=== PATIENT | female | born 2005 | race Caucasian/White ===

== ENCOUNTER 2025-03-17 15:32 | Emergency (ER) | payer BC, SELFPAY ==
[2025-03-17 15:39] VITALS: BP 100/68
--- NOTE | 2025-03-17 17:34 | ED.GENMED ---
History of Present Illness
General
Chief Complaint: Chest Problem
Source: patient and family (Mom at bedside)
Exam Limitations: none
Time Seen by Provider: 03/17/25 17:01
Nursing documentation reviewed up to this point in time: agreed with
History of Present Illness
History of Present Illness:
Patient is a 19-year-old female presenting to the emergency department with mom and dad for evaluation of chest pain. Patient states she has had 2 days of constant pressure in her mid chest. Symptoms seem worse with movement and when lying on her
side. She feels better when she is lying down. Patient denies any associated fever, cough, shortness of breath, dizziness, lightheadedness. No back pain. She denies any true pleuritic or exertional symptoms.
Patient was seen at urgent care earlier today where she had a normal chest x-ray and was referred to the emergency department for further evaluation given chest pain and elevated heart rate.
No recent travel or recent surgeries. No lower leg pain or swelling.
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
No personal or family history of blood clots or clotting disorders.
Review of Systems
Review of Systems
Allergies reviewed?: Yes
All Other Systems: ROS reviewed and negative except as documented in HPI and ROS
Phy Exam
Physical Exam
Physical Exam:
Vitals: Mildly tachycardic, otherwise vital signs stable. Afebrile
General: Patient is well appearing, no acute distress
Skin: Warm and dry, no rashes or lesions
Head: Normocephalic, atraumatic
Eyes: Sclera nonicteric. EOMs intact. No nystagmus.
Throat: Protecting airway
Neck: Normal ROM, no cervical spine tenderness, no meningismus
Cardiac: Tachycardic, normal rhythm, no murmurs. Reproducible chest tenderness to mid chest.
Pulm: Normal respiratory effort, no wheezes, rales, rhonchi heard on exam.
Abdomen: Abdomen soft and nontender
Extremities: No evidence of cyanosis or edema. Palpable DP pulses bilaterally
Neuro: AAOx3. Grossly intact.
Psychiatric: Normal affect.
Course
Orders/Labs/Results
Orders:
Orders
03/17/25 15:33
EKG [Electrocardiogram (*1)] Urgent
Reason for Study: Palpitations
03/17/25 15:34
EKG- Treatment ONCE
03/17/25 17:14
Ketorolac [Toradol] 15 mg IV NOW STA
Test Result ONCE
03/17/25 17:36
Complete Blood Count/With Diff Urgent
Comprehensive Metabolic Panel Urgent
D-Dimer Urgent
HCG, Serum Qualitative Screen Urgent
Troponin I Urgent
Abnormal Lab Results
03/17/25
17:36
WBC 12.0 H 10^3/uL
(4.8-10.8)
MCH 31.9 H pg
(27.0-31.0)
MPV 11.8 H fL
(7.4-10.4)
Absolute Neuts (auto) 9.5 H 10^3/uL
(1.4-6.5)
Absolute Monos (auto) 0.9 H 10^3/uL
(0.1-0.6)
Neutrophils % 79.6 H %
(42.2-75.2)
Lymphocytes % 11.4 L %
(20.5-51.1)
03/17/25 17:36
03/17/25 17:36
Vital Signs
Initial and Last Documented VS:
Initial Vital Signs
Temp Pulse Resp BP Pulse Ox
99.1 F 104 20 100/68 98
03/17/25 15:39 03/17/25 15:39 03/17/25 15:39 03/17/25 15:39 03/17/25 15:39
Last Documented Vital Signs
Temp Pulse Resp BP Pulse Ox
99.1 F 87 17 99/70 96
03/17/25 15:39 03/17/25 19:15 03/17/25 19:15 03/17/25 19:01 03/17/25 19:15
MDM/Problems Addressed
Differential Diagnosis Includes:
Not limited to: Costochondritis, chest wall strain, pleurisy, pericarditis, myocarditis, pulmonary embolism, etc.
MDM/Problems Addressed:
19-year-old female with two days of mid sternal chest pain. No associated shortness of breath, fever, cough, lightheadedness. No known inciting injury. Patient had x-ray performed at urgent care prior to ED visit which was normal per radiology read.
Patient mildly tachycardic on arrival, otherwise stable vital signs. Physical exam as above. Patient well appearing, in no apparent distress. Mildly tachycardic on arrival with normal rhythm. Lungs are clear bilaterally. She does have some
reproducible tenderness to chest wall. No evidence of DVT on exam. While patient has no risk factors for PE she is mildly tachy on arrival. Did review CXR results from the urgent care which should no acute process by radiology read. Will check basic
labs, troponin, and D-dimer. Will give Toradol and reassess.
Update: EKG shows normal sinus rhythm without acute ischemic changes. Mild leukocytosis noted. Troponin undetectable and given symptoms have been constant for the past few days � feel this is sufficient to rule out acute WI. Fortunately � d-dimer
was negative. Patient has seen significant improvement following Toradol. Vital signs have normalized. Ultimately � suspect musculoskeletal etiology. Do not suspect acute cardiac/pulmonary emergent process. Feel patient stable for discharge home
with primary care f/u. Very close precautions discussed. Patient and patient�s family comfortable with plan.
Chronic conditions affecting care:
N/A
Acute Exacerbation and/or Progression of Chronic Illness:
N/A
*Pulse Oximetry
Patient hypoxic: no
*EKG
Interpreted by ED Provider?: Yes
EKG Intrepretation Date: 03/17/25
Interpretation: normal
Comparison EKG: no changes
Heart Rate: 91
Rate: normal
Rhythm: sinus
[place]: normal axis
Interval: normal QT interval
QRS Pattern: normal QRS
Ischemia: no ischemia
*Player Development Manager Interpretation
Rate: tachycardiac
Interpretation: abnormal
Heart Rate: 106
Rhythm: sinus
*Critical Care Note
Total Time (30-74mins, 75-104mins- exclusive of procedures): Not Applicable
Data Reviewed
Review of Other/Old Records Reveals: Radiology Studies (Chest x-ray performed at urgent care-no acute cardio/pulmonary process)
ED Attending Note
-
Portions of this chart may have been created with voice recognition software.� Occasional wrong word or��sound alike� substitutions may have occurred due to the inherent limitations of voice recognition software.
Discharge Plan
Departure
Patient Disposition: Home (Routine Discharge)
Date of Disposition: 03/17/25
Time of Disposition: 18:55
Patient with high blood pressure during this ER visit?: No
Condition: Good
Covid-19: Not Applicable
Discharge Problem:
Chest pain
Instructions: Chest Pain (DC)
Referrals:
Nohemi Roblero NP [Family Provider] - Follow up in 5-7 days
Stand Alone Forms: Back to School
Activity Restrictions/Additional Instructions:
RETURN TO THE EMERGENCY DEPARTMENT WITH ANY WORSENING CHEST PAIN, SHORTNESS OF BREATH, DIZZINESS/LIGHTHEADEDNESS, EPISODES OF FAINTING, WORSENING IN CURRENT SYMPTOMS, OR ANY OTHER CONCERNS
- We are unsure the exact cause of your chest pain today. Your lab work in the emergency department showed no acute abnormalities other than a mild elevation in your white blood cell count. You were given IV Toradol while in the emergency
department.
- Your chest x-ray performed at urgent care showed no abnormalities according to the radiology report.
- Continue to take Tylenol and/Motrin as needed for pain. Stay well-hydrated. Get plenty of rest.
- Follow-up with primary care for further evaluation/management to ensure that symptoms are improved
Monitor your symptoms closely and return to the emergency department with any acute worsening/new symptoms or any other concern
Interventions
Interventions:
*Risk Screen - Suicide Last Done: 03/17/25 15:39
*Neglect/Abuse Screening Last Done: 03/17/25 15:39
*ED- Fall Risk Assessment Last Done: 03/17/25 17:50
*ED COVID-19 Vaccine History Last Done: 03/17/25 17:50
*Nursing Disposition Last Done: 03/17/25 19:28
ED- Cardiac Assessment Last Done: 03/17/25 17:06
ED- Pulmonary Assessment Last Done: 03/17/25 17:06
Discharge Date and Time
Discharge Date/Time: 03/17/25 19:29
Print Language: PERSIAN
[2025-03-17] MEDS: TORADOL 15 MG IV (17:39)
[2025-03-17 17:43] VITALS: BP 122/86
[2025-03-17 17:43] LABS: % Basophils 0.5 % (0-2); % Eosinophils 0.3 % (0-6); % Immature Granulocytes 0.3 % (0-0.5); % Lymphocytes 11.4 % (20.5-51.1); % Monocytes 7.9 % (1.7-9.3); % Neutrophils 79.6 % (42.2-75.2); Absolute Basophils 0.1 10^3/uL (0-0.2); Absolute Lymphocytes 1.4 10^3/uL (1.2-3.4); Absolute Monocytes 0.9 10^3/uL (0.1-0.6); Absolute Neutrophils 9.5 10^3/uL (1.4-6.5); Hematocrit 39.2 % (37.0-47.0); Hemoglobin 13.5 g/dL (12.0-16.0); Mean Corp Hgb Conc. 34.4 g/dL (33.0-37.0); Mean Corpuscular Hgb 31.9 pg (27.0-31.0); Mean Corpuscular Volume 92.7 fL (81.0-99.0); Mean Platelet Volume 11.8 fL (7.4-10.4); Nucleated Red Blood Cells % 0 %; Platelet Count 182 10^3/uL (130-400); Red Blood Cell Count 4.23 10^6/uL (4.20-5.40); Red Cell Dist. Width 12.9 % (11.5-14.5)
[2025-03-17 17:54] LABS: HCG, Serum Qualitative Screen Negative
[2025-03-17 17:58] LABS: ALT (SGPT) 13 U/L (0-35); AST (SGOT) 20 U/L (14-36); Albumin 4.9 g/dl (3.5-5.0); Alkaline Phosphatase 65 U/L (38-126); Blood Urea Nitrogen 13 mg/dl (7-17); Calcium 9.1 mg/dl (8.4-10.2); Carbon Dioxide 24 mmol/L (22-30); Chloride 106 mmol/L (98-107); Glucose 86 mg/dl (70-99); Potassium 4.2 mmol/L (3.5-5.1); Sodium 140 mmol/L (135-145); Total Bilirubin 0.8 mg/dl (0.2-1.3); Total Protein 7.7 g/dl (6.3-8.2); eGFR > 60.00
[2025-03-17 18:00] VITALS: BP 110/77
[2025-03-17 18:09] LABS: Troponin I < 0.012 ng/ml
[2025-03-17 18:10] LABS: D-Dimer 0.28 ug/mlFEU (0.00-0.50)
[2025-03-17 19:01] VITALS: BP 99/70
== END 2025-03-17 19:29 | disposition home or self-care (01) ==
LOC: EMR 15:32
PROVIDERS: Physician Assistant; EMERGENCY PHYSICIAN Emergency Medicine; FAMILY PHYSICIAN Nurse Practitioner Family
DX: R07.89 Other chest pain (principal)
CPT/HCPCS: 99283; 96374; 80053; 84484; 84703; 85025; 85379; 93005